=== PATIENT | female | born 1980 | race Caucasian/White ===

== ENCOUNTER 2016-08-12 11:16 | Emergency (ER) | payer OTHER ==
[2016-08-12 11:40] VITALS: BP 116/77
--- NOTE | 2016-08-12 12:07 | UC ---
Skin Complaint HPI - HPI Summary HPI Summary: Patient was bit by a tick yesterday in right upper thigh, attempted to remove thinks some is left in. worried about lyme - History of Current Complaint Chief Complaint: UCSkin Time Seen by Provider: 08/12/16 11:49 Stated Complaint: TICK BITE Hx Obtained From: Patient Hx Last Menstrual Period: 08/05/16 ?: No Onset/Duration: Sudden Onset, Lasting Hours Skin Exposure Onset/Duration: Hours Ago Timing: Constant Onset Severity: Mild Current Severity: None Pain Intensity: 0 Pain Scale Used: 0-10 Numeric Aggravating: Nothing Alleviating: Nothing - Allergy/Home Medications Allergies/Adverse Reactions: Allergies Allergy/AdvReac Type Severity Reaction Status Date / Time Nickel Allergy Rash Verified 08/12/16 11:34 Home Medications: Home Medications NK [No Home Medications Reported] 08/12/16 [History Confirmed 08/12/16] Review of Systems Constitutional: Negative Skin: Other - erythema around the bite Eyes: Negative ENT: Negative Respiratory: Negative Cardiovascular: Negative Gastrointestinal: Negative Genitourinary: Negative Motor: Negative Neurovascular: Negative Musculoskeletal: Negative Neurological: Negative Psychological: Negative All Other Systems Reviewed And Are Negative: Yes PMH/Surg Hx/FS Hx/Imm Hx Previously Healthy: Yes - Surgical History Surgical History: Yes Surgery Procedure, Year, and Place: MOLE REMOVAL - Family History Known Family History: Negative: Cardiac Disease, Hypertension - Social History Alcohol Use: Rare Substance Use Type: None Smoking Status (MU): Never Smoked Tobacco Type: Cigarettes Amount Used/How Often: 1 pack daily x 12 years Have You Smoked in the Last Year: No - Immunization History Most Recent Influenza Vaccination: unknown Most Recent Tetanus Shot: 09/14/13 Most Recent Pneumonia Vaccination: none Physical Exam Triage Information Reviewed: Yes Appearance: Well-Appearing, No Pain Distress, Well-Nourished Vital Signs: Initial Vital Signs Temp 97.9 F 08/12/16 11:35 Pulse 60 08/12/16 11:35 Resp 18 08/12/16 11:35 BP 116/77 08/12/16 11:35 Pulse Ox 98 08/12/16 11:35 Vital Signs Reviewed: Yes Eye Exam: Normal Eyes: Positive: Conjunctiva Clear ENT Exam: Normal ENT: Positive: Normal ENT inspection, Hearing grossly normal, Pharynx normal, TMs normal Dental Exam: Normal Neck exam: Normal Neck: Positive: Supple, Nontender, No Lymphadenopathy Respiratory Exam: Normal Respiratory: Positive: Chest non-tender, Lungs clear, Normal breath sounds Cardiovascular Exam: Normal Cardiovascular: Positive: RRR, No Murmur, Pulses Normal Abdominal Exam: Normal Abdomen Description: Positive: Nontender, No Organomegaly, Soft Bowel Sounds: Positive: Present Musculoskeletal Exam: Normal Musculoskeletal: Positive: Strength Intact, ROM Intact, No Edema Neurological Exam: Normal Neurological: Positive: Alert, Muscle Tone Normal Psychological Exam: Normal Skin: Positive: significant lesion(s) - bite noted in right upper thigh, circumferencial erythema, denies pain, attempted to find any parts to remove, none noted. Course/Dx - Course Course Of Treatment: hx obtained exam performed, education on tick bites and lyme disease given. attempted to remove any remaining part of tick, but none were seen. - Differential Diagnoses - Skin Complaint Differential Diagnoses: Abscess, Cellulitis, Contact Dermatitis, Urticaria - tick bite - Diagnoses Provider Diagnoses: tick bite Discharge - Discharge Plan Condition: Stable Disposition: HOME Patient Education Materials: Tick Bite (ED) Additional Instructions: I have included a hand out with warning signs of lyme. Use benadryl or hydrocortisone as neede for any itching on the bite site.
== END 2016-08-12 12:08 | disposition home or self-care (01) ==
LOC: UCEAST 11:16
DX: S70.361A Insect bite (nonvenomous), right thigh, initial encounter (principal); W57.XXXA Bitten or stung by nonvenomous insect and other nonvenomous arthropods, initial encounter; Y93.9 Activity, unspecified; Y92.9 Unspecified place or not applicable; F17.210 Nicotine dependence, cigarettes, uncomplicated
CPT/HCPCS: 99211; G0463